=== PATIENT | male | born 1980 | race Caucasian/White ===

== ENCOUNTER 2018-12-13 22:56 | Emergency (ER) | payer SELFPAY ==
[~2018-12-13] VITALS: Ht 172.7 cm; Wt 70.3 kg
--- NOTE | 2018-12-13 23:06 | NUR ---
Dr. Bettencourt at bedside for evaluation.
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
[2018-12-13] MEDS ORDERED: ONDANSETRON ODT 4 MG TAB.RAPDIS SL ONE (23:15)
[2018-12-13] MEDS ORDERED: HYDROCODONE/APAP 5-325MG TABLET PO ONE (23:15)
[2018-12-13] MEDS ORDERED: TDAP DIPH,PERTUSS,TET VAC/PF 0.5 ML DISP.SYRIN IM ONE ×2 (23:15→23:20)
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
[2018-12-13] MEDS ORDERED: HYDROCODONE/APAP 5-325MG TABLET ONE (23:20)
[2018-12-13] MEDS ORDERED: ONDANSETRON ODT 4 MG TAB.RAPDIS ONE (23:20)
--- NOTE | 2018-12-13 23:40 | NUR ---
patient received care. patient left hospital, ELOPED. without after care instructions.
[2018-12-13 23:42] VITALS: BP 114/80
== END 2018-12-13 23:43 | disposition left against medical advice (07) ==
LOC: ER 23:02
DX: S40.022A Contusion of left upper arm, initial encounter (principal); S40.021A Contusion of right upper arm, initial encounter; S80.02XA Contusion of left knee, initial encounter; S80.01XA Contusion of right knee, initial encounter; S00.83XA Contusion of other part of head, initial encounter; F12.10 Cannabis abuse, uncomplicated; Y04.2XXA Assault by strike against or bumped into by another person, initial encounter; Y93.89 Activity, other specified; Y92.89 Other specified places as the place of occurrence of the external cause; Y99.8 Other external cause status
CPT/HCPCS: 90715; A4663; Q0162

== ENCOUNTER 2019-03-22 13:03 | Emergency (ER) | payer OTHER ==
[~2019-03-22] VITALS: Ht 175.3 cm; Wt 72.6 kg
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
--- NOTE | 2019-03-22 13:20 | NUR ---
Dr. Wolff at bedside for MSE
[2019-03-22] MEDS ORDERED: LIDOCAINE HCL 2% 20 ML VIAL TP ONE (13:30)
--- NOTE | 2019-03-22 13:36 | NUR ---
Patient discharged to home in stable conditon. Written and verbal after care instructions given. Patient verbalizes understanding of instructions. Patient ambulating with steady gait
[2019-03-22 13:40] VITALS: BP 143/82
--- NOTE | 2019-03-22 14:48 | NUR ---
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
== END 2019-03-22 13:36 | disposition home or self-care (01) ==
LOC: ER 13:03
DX: S01.01XA Laceration without foreign body of scalp, initial encounter (principal); F12.10 Cannabis abuse, uncomplicated; W22.8XXA Striking against or struck by other objects, initial encounter; Y93.89 Activity, other specified; Y92.89 Other specified places as the place of occurrence of the external cause; Y99.8 Other external cause status
CPT/HCPCS: A4663

== ENCOUNTER 2019-10-27 07:51 | Emergency (ER) | payer BC, MEDICAID, OTHER ==
[~2019-10-27] VITALS: Ht 175.3 cm; Wt 72.6 kg
--- NOTE | 2019-10-27 08:27 | NUR ---
PT IS IN ROOM #2A. DR MAGALLANES EVALUATED THE PT.
[2019-10-27 08:45] LABS: BASOPHILS # (AUTO) 0.1 K/uL (0.0-8.0); BASOPHILS % (AUTO) 0.5 % (0.0-2.0); EOSINOPHILS % (AUTO) 0.1 % (0.0-7.0); HEMATOCRIT 44.8 % (36.7-47.1); HEMOGLOBIN 15.1 g/dL (12.5-16.3); LYMPHOCYTES # (AUTO) 2.7 K/uL (20.0-40.0); LYMPHOCYTES % (AUTO) 22.8 % (20.5-51.5); MEAN CORPUSCULAR HEMOGLOBIN 30.3 uug (23.8-33.4); MEAN CORPUSCULAR HGB CONC 34 g/dL (32.5-36.3); MEAN CORPUSCULAR VOLUME 89.8 fL (73.0-96.2); MONOCYTES # (AUTO) 0.7 K/uL (2.0-10.0); MONOCYTES % (AUTO) 5.6 % (0.0-11.0); NEUTROPHILS # (AUTO) 8.4 K/uL (1.8-8.9); PLATELET COUNT (AUTO) 330 K/uL (152-348); RED BLOOD CELL COUNT(AUTO) 4.99 MIL/uL (4.06-5.63); WHITE BLOOD COUNT (AUTO) 11.8 K/uL (3.6-10.2)
[2019-10-27 08:54] LABS: *AMPHETAMINE, URINE POSITIVE (NEGATIVE); *BARBITURATE, URINE NEGATIVE (NEGATIVE); *CANNABINOID, URINE POSITIVE (NEGATIVE); *COCCAINE, URINE POSITIVE (NEGATIVE); *OPIATE, URINE NEGATIVE (NEGATIVE); *PHENCYCLIDINE SCREEN,URINE NEGATIVE (NEGATIVE)
[2019-10-27 08:57] LABS: ETHANOL 246 MG/DL (0-0)
[2019-10-27 09:05] LABS: ACETAMINOPHEN < 2.0 ug/mL (10-30)
[2019-10-27 09:14] LABS: CREATININE 1.2 mg/dL (0.6-1.3)
[2019-10-27 09:21] LABS: BILIRUBIN,DIRECT 0.2 mg/dL (0.0-0.2); BILIRUBIN,TOTAL 0.6 mg/dL (0.2-1.0); TOTAL PROTEIN, SERUM 8.2 g/dL (6.4-8.2)
--- NOTE | 2019-10-27 09:55 | NUR ---
PT WAS D/C'd TO HOME. D/C INSTRUCTIONS GIVEN TO THE PT BY DR MAGALLANES.
[2019-10-27 09:56] VITALS: BP 135/78
== END 2019-10-27 09:57 | disposition home or self-care (01) ==
LOC: ER 07:51
DX: S06.0X9A Concussion with loss of consciousness of unspecified duration, initial encounter (principal); X58.XXXA Exposure to other specified factors, initial encounter; Y92.89 Other specified places as the place of occurrence of the external cause; S40.212A Abrasion of left shoulder, initial encounter; F10.129 Alcohol abuse with intoxication, unspecified; Y90.8 Blood alcohol level of 240 mg/100 ml or more; M50.323 Other cervical disc degeneration at C6-C7 level; E86.0 Dehydration; D72.829 Elevated white blood cell count, unspecified; R78.2 Finding of cocaine in blood; R78.89 Finding of other specified substances, not normally found in blood
CPT/HCPCS: 36415; 70450; 72125; 80048; 80076; 80307 ×2; 80329; 82550; 85025; 85730; 99285; G0480; A4663; J7030